=== PATIENT | female | born 1940 | race Hispanic/Latino ===

== ENCOUNTER 2017-10-21 20:46 | Emergency (ER) | payer MEDICARE ==
[~2017-10-21 20:46] MED LIST: CA C1TAB99 PO; CHOL200074 PO; DILT120T PO; ESCI20TA PO; ESOM20CA31 PO; GLIP5TAB11 PO; LEVO250T2 PO; LEVO50TA11 PO; MELO-106 PO; METF500T6 PO; PANT40SU PO; POLY17PO4 PO; SIMV10TA6 PO; TRAM50TA4 PO
[2017-10-21] MEDS ORDERED: ONDANSETRON HCL 4 MG/2 ML VIAL ONE (21:41)
[2017-10-21] MEDS ORDERED: SODIUM CHLORIDE 0.9% 1000ML 1,000 ML IV ONE (21:41)
[2017-10-21] MEDS ORDERED: FAMOTIDINE/PF 20 MG/2 ML VIAL IV ONE (21:42)
[2017-10-21 21:53] LABS: CARBON DIOXIDE 28 mmol/L (21-32); CHLORIDE 103 mmol/L (101-111); CREATININE 0.8 mg/dL (0.5-1.5); GLOMERULAR FILTR. RATE CALC 74 mL/min (>60); GLUCOSE,RANDOM 248 mg/dL (70-105); POTASSIUM 4.5 mmol/L (3.5-5.1); SODIUM SERUM 140 mmol/L (136-145); UREA NITROGEN, BLOOD 18 mg/dL (7-18)
[2017-10-21 22:04] LABS: BASOPHILS % (AUTO) 0.6 % (0.0-5.0); EOSINOPHILS % (AUTO) 1.6 % (0.0-8.0); LYMPHOCYTES % (AUTO) 23.3 % (21.0-51.0); MEAN CORPUSCULAR HEMOGLOBIN 30.3 pg (27.0-33.0); MEAN CORPUSCULAR HGB CONC 34.1 g/dL (32.0-36.0); MONOCYTES % (AUTO) 6.7 % (3.0-13.0); NEUTROPHILS % (AUTO) 67.8 % (40.0-77.0); PLATELET COUNT (AUTO) 116 K/uL (130-400); RED BLOOD CELL COUNT(AUTO) 4.04 MIL/uL (4.00-5.50); RED CELL DISTRIBUTION WIDTH 12.9 % (11.0-15.5); WHITE BLOOD COUNT (AUTO) 11.2 K/uL (4.8-10.8)
[2017-10-21 22:26] LABS: ALANINE AMINOTRANSFERASE 27 U/L (12-78); ALBUMIN 3.1 g/dL (3.5-5.0); ASPARTATE AMINOTRANSFERASE 21 U/L (10-37); BILIRUBIN,TOTAL 0.2 mg/dL (0.2-1.0); CREATINE KINASE MB < 0.5 ng/mL (0.5-3.6); CREATINE KINASE, TOTAL 33 U/L (21-232); LIPASE 189 U/L (114-286); TOTAL PROTEIN, SERUM 7.6 g/dL (6.0-8.3)
== END 2017-10-22 02:11 | disposition home or self-care (01) ==
LOC: EDH 20:46
DX: K59.00 Constipation, unspecified (principal); E11.9 Type 2 diabetes mellitus without complications; E78.5 Hyperlipidemia, unspecified; I10 Essential (primary) hypertension
CPT/HCPCS: 36415; 74176; 80053; 82550; 82553; 83690; 84484; 85025; 93005; 96361; 96374; 96375; 99285; J2405; J3490; J7030

== ENCOUNTER 2018-02-24 11:11 | Emergency (ER) | payer MEDICARE ==
[2018-02-24] MEDS ORDERED: IOPAMIDOL-370 75 ML VIAL IV ONE (11:45)
[2018-02-24] MEDS ORDERED: SODIUM CHLORIDE 0.9% 1000ML 1,000 ML IV ONE (11:47)
[2018-02-24] MEDS ORDERED: ONDANSETRON HCL 4 MG/2 ML VIAL ONE (11:47)
[2018-02-24 11:50] LABS: BASOPHILS % (AUTO) 0.3 % (0.0-5.0); EOSINOPHILS % (AUTO) 0.1 % (0.0-8.0); HEMATOCRIT 36.7 % (36-48); LYMPHOCYTES % (AUTO) 2.9 % (21.0-51.0); MEAN CORPUSCULAR HEMOGLOBIN 30.8 pg (27.0-33.0); MEAN CORPUSCULAR HGB CONC 34.5 g/dL (32.0-36.0); MEAN CORPUSCULAR VOLUME 89.3 fL (79-99); MONOCYTES % (AUTO) 3.1 % (3.0-13.0); NEUTROPHILS % (AUTO) 93.6 % (40.0-77.0); PLATELET COUNT (AUTO) 216 K/uL (130-400); RED BLOOD CELL COUNT(AUTO) 4.11 MIL/uL (4.00-5.50); RED CELL DISTRIBUTION WIDTH 13.1 % (11.0-15.5); WHITE BLOOD COUNT (AUTO) 11.7 K/uL (4.8-10.8)
[2018-02-24 12:01] LABS: ALBUMIN 3.5 g/dL (3.5-5.0); BILIRUBIN,TOTAL 0.5 mg/dL (0.2-1.0); CREATININE 1.1 mg/dL (0.5-1.5); POTASSIUM 4.1 mmol/L (3.5-5.1); TOTAL PROTEIN, SERUM 7.8 g/dL (6.0-8.3)
[2018-02-24] MEDS ORDERED: ACETAMINOPHEN 325 MG TAB ONE (13:22)
[2018-02-24] MEDS ORDERED: INSULIN HUMULIN R 100 UNIT/ML 3ML ONE (15:05)
== END 2018-02-24 15:13 | disposition home or self-care (01) ==
LOC: EDH 11:11
DX: K52.9 Noninfective gastroenteritis and colitis, unspecified (principal); E11.9 Type 2 diabetes mellitus without complications; E78.5 Hyperlipidemia, unspecified; I10 Essential (primary) hypertension; Z90.49 Acquired absence of other specified parts of digestive tract
CPT/HCPCS: 36415; 74177; 80053; 83690; 85025; 96372; 96374; 99285; J1815; J2405; J7030; Q9967

== ENCOUNTER 2018-06-28 06:07 | Emergency (ER) | payer MEDICARE ==
[~2018-06-28 06:07] MED LIST changes: +METF-444 PO; -METF500T6 PO
[2018-06-28 06:45] LABS: BASOPHILS % (AUTO) 0.8 % (0.0-5.0); EOSINOPHILS % (AUTO) 0.3 % (0.0-8.0); HEMATOCRIT 37.2 % (36-48); LYMPHOCYTES % (AUTO) 4.7 % (21.0-51.0); MEAN CORPUSCULAR HEMOGLOBIN 29.5 pg (27.0-33.0); MEAN CORPUSCULAR HGB CONC 33.2 g/dL (32.0-36.0); MEAN CORPUSCULAR VOLUME 88.7 fL (79-99); NEUTROPHILS % (AUTO) 88.2 % (40.0-77.0); PLATELET COUNT (AUTO) 216 K/uL (130-400); RED BLOOD CELL COUNT(AUTO) 4.19 MIL/uL (4.00-5.50); RED CELL DISTRIBUTION WIDTH 12.9 % (11.0-15.5); WHITE BLOOD COUNT (AUTO) 18.1 K/uL (4.8-10.8)
[2018-06-28 06:47] LABS: RAPID GROUP A STREP NEGATIVE (NEGATIVE)
[2018-06-28] MEDS ORDERED: ONDANSETRON HCL 4 MG/2 ML VIAL ONE (06:49)
[2018-06-28] MEDS ORDERED: SODIUM CHLORIDE 0.9% 1000ML 1,000 ML IV ONE (06:49)
[2018-06-28] MEDS ORDERED: ACETAMINOPHEN-CODEINE ELIXIR 5 ML UDCUP ONE (06:49)
[2018-06-28 06:54] LABS: APPEARANCE,URINE Cloudy (CLEAR); BILIRUBIN,URINE Negative (NEGATIVE); COLOR,URINE Yellow (YELLOW); GLUCOSE, URINE (UA) >=1000 mg/dL (NEGATIVE); KETONES,URINE 40 mg/dL (NEGATIVE); LEUKOCYTE ESTERASE ,URINE Negative (NEGATIVE); NITRATE,URINE Positive (NEGATIVE); OCCULT BLOOD,URINE Small (NEGATIVE); PROTEIN,URINE POS 2+ (NEGATIVE); UROBILINOGEN,URINE 0.2 mg/dL (0.2-1.0)
[2018-06-28 07:00] LABS: CARBON DIOXIDE 25 mmol/L (21-32); CHLORIDE 99 mmol/L (101-111); CREATININE 1.1 mg/dL (0.5-1.5); GLOMERULAR FILTR. RATE CALC 51 mL/min (>60); GLUCOSE,RANDOM 367 mg/dL (70-105); POTASSIUM 3.7 mmol/L (3.5-5.1); SODIUM SERUM 136 mmol/L (136-145); UREA NITROGEN, BLOOD 23 mg/dL (7-18)
[2018-06-28 07:02] LABS: INR 0.95 (0.85-1.15); PARTIAL THROMBOPLASTIN TIME 29.9 SEC (26.3-35.5)
[2018-06-28] MEDS ORDERED: IOHEXOL 350 MG/ML 100ML INFUS..BTL IV ONE (07:12)
[2018-06-28 07:17] LABS: ALANINE AMINOTRANSFERASE 16 U/L (12-78); ALBUMIN 3.2 g/dL (3.5-5.0); ASPARTATE AMINOTRANSFERASE 10 U/L (10-37); BILIRUBIN,TOTAL 0.5 mg/dL (0.2-1.0); CREATINE KINASE, TOTAL 30 U/L (21-232); MYOGLOBIN 22 ng/mL (10-92); TOTAL PROTEIN, SERUM 8.6 g/dL (6.0-8.3); TROPONIN I < 0.04 ng/mL (0.00-0.06)
[2018-06-28 07:33] LABS: BACTERIA,URINE Many /HPF (None Seen); RBC,URINE 0-1 /HPF (0-1); SQUAMOUS EPITHELIAL CELL,UR Rare /HPF (0-2)
[2018-06-28] MEDS ORDERED: CEFTRIAXONE SODIUM 1 GM ONE (07:55)
[2018-06-28] MEDS ORDERED: SODIUM CHLORIDE 0.9% 50 ML IV ONE (07:56)
[2018-06-28] MEDS ORDERED: INSULIN HUMULIN R 100 UNIT/ML 3ML ONE (08:30)
[2018-06-29] MEDS ORDERED: CEPH500C2 PO (12:30)
[2018-06-29] MEDS ORDERED: TYL3B PO (12:30)
[2018-06-29] MEDS ORDERED: FLUC150T6 PO (12:30)
[2018-06-29] MEDS ORDERED: ONDA4TAB10 PO (12:30)
[2018-06-29] MEDS ORDERED: DILT-36 PO (15:50)
[2018-06-29] MEDS ORDERED: MELO-108 PO (15:50)
[2018-06-29] MEDS ORDERED: CELE-84 PO (15:50)
[2018-06-29] MEDS ORDERED: PRAV20TA4 PO (15:50)
[2018-06-29] MEDS ORDERED: LOSA50TA25 PO (15:50)
[2018-06-29] MEDS ORDERED: NITR100C PO (15:50)
[2018-06-29] MEDS ORDERED: GLIP5TAB11 PO (15:50)
[2018-06-29] MEDS ORDERED: DONE5TAB33 PO (15:50)
[2018-06-29] MEDS ORDERED: DOCU-282 PO (15:50)
== END 2018-06-28 09:51 | disposition home or self-care (01) ==
LOC: EDH 06:07
DX: N10 Acute pyelonephritis (principal); E11.65 Type 2 diabetes mellitus with hyperglycemia; I10 Essential (primary) hypertension; E78.5 Hyperlipidemia, unspecified
CPT/HCPCS: 36415; 71045; 74177; 80053; 81001; 82550; 82948; 83605; 83874; 84484; 85025; 85610; 85730; 87040 ×2; 87077 ×3; 87088; 87186 ×3; 87804 ×2; 87880; 93005; 96374; 96375; 99285; J0696; J1815; J2405; J7030; Q9967

== ENCOUNTER 2018-06-28 15:06 | Inpatient (IN) | payer MEDICARE ==
[~2018-06-28] VITALS: Ht 167.6 cm; Wt 92.3 kg
[2018-06-28] MEDS ORDERED: SODIUM CHLORIDE 0.9% 1000ML 1,000 ML IV ONE ×2 (15:19→17:24)
[2018-06-28] MEDS ORDERED: ONDANSETRON HCL 4 MG/2 ML VIAL ONE (15:19)
[2018-06-28 15:29] LABS: BASOPHILS % (AUTO) 0.4 % (0.0-5.0); EOSINOPHILS % (AUTO) 0.2 % (0.0-8.0); HEMATOCRIT 34.1 % (36-48); MEAN CORPUSCULAR HEMOGLOBIN 29.6 pg (27.0-33.0); MEAN CORPUSCULAR HGB CONC 33.4 g/dL (32.0-36.0); MEAN CORPUSCULAR VOLUME 88.8 fL (79-99); MONOCYTES % (AUTO) 6.7 % (3.0-13.0); NEUTROPHILS % (AUTO) 87.7 % (40.0-77.0); PLATELET COUNT (AUTO) 198 K/uL (130-400); RED BLOOD CELL COUNT(AUTO) 3.84 MIL/uL (4.00-5.50); WHITE BLOOD COUNT (AUTO) 15.8 K/uL (4.8-10.8)
[2018-06-28 15:51] LABS: CREATININE 0.9 mg/dL (0.5-1.5); POTASSIUM 3.7 mmol/L (3.5-5.1)
[2018-06-28 15:56] LABS: BILIRUBIN,TOTAL 0.3 mg/dL (0.2-1.0); TOTAL PROTEIN, SERUM 8.2 g/dL (6.0-8.3)
[2018-06-28] MEDS ORDERED: ACETAMINOPHEN 325 MG TAB ONE (17:24)
[2018-06-28 19:23] VITALS: BP 146/61
[2018-06-28] MEDS: SODIUM CHLORIDE 0.9% 1000ML 1,000 ML IV SCH (19:40)
[2018-06-28] MEDS: CEFTRIAXONE SODIUM 1 GM IVP SCH (19:41)
[2018-06-28] MEDS: ENOXAPARIN SODIUM 40 MG/0.4 ML SYRINGE SQ SCH (19:42)
[2018-06-28 20:00] VITALS: BP 143/58
[2018-06-28 23:40] VITALS: BP 155/68
[2018-06-28] MEDS: ACETAMINOPHEN 325 MG TAB PO PRN (23:58)
[2018-06-29] VITALS (7 sets, daily range): BP systolic 137–160; BP diastolic 48–70
[2018-06-29] MEDS: SODIUM CHLORIDE 0.9% 1000ML 1,000 ML IV SCH ×2 (05:27→22:13)
[2018-06-29] MEDS ORDERED: PNEUMOCOCCAL VACCINE POLYVALENT 0.5 ML/VIAL [PPV] IM SCH (06:30)
[2018-06-29] MEDS ORDERED: TYL3B PO (12:30)
[2018-06-29] MEDS ORDERED: CEPH500C2 PO (12:30)
[2018-06-29] MEDS ORDERED: ONDA4TAB10 PO (12:30)
[2018-06-29] MEDS ORDERED: FLUC150T6 PO (12:30)
[2018-06-29] MEDS: ACETAMINOPHEN 325 MG TAB PO PRN ×2 (14:12→22:32)
[2018-06-29] MEDS ORDERED: GLIP5TAB11 PO (15:50)
[2018-06-29] MEDS ORDERED: CELE-84 PO (15:50)
[2018-06-29] MEDS ORDERED: DILT-36 PO (15:50)
[2018-06-29] MEDS ORDERED: DONE5TAB33 PO (15:50)
[2018-06-29] MEDS ORDERED: DOCU-282 PO (15:50)
[2018-06-29] MEDS ORDERED: NITR100C PO (15:50)
[2018-06-29] MEDS ORDERED: PRAV20TA4 PO (15:50)
[2018-06-29] MEDS ORDERED: MELO-108 PO (15:50)
[2018-06-29] MEDS ORDERED: LOSA50TA25 PO (15:50)
[2018-06-29] MEDS ORDERED: MORPHINE SULFATE 2 MG/ML 1ML SYG IVP PRN (20:45)
[2018-06-29] MEDS: INSULIN HUMULIN R 100 UNIT/ML 3ML SQ SCH (22:06)
[2018-06-29] MEDS: INSULIN GLARGINE 100 UNITS/ML 10 ML VIAL SQ SCH (22:06)
[2018-06-29] MEDS: ONDANSETRON HCL 4 MG/2 ML VIAL IVP PRN (22:10)
[2018-06-29] MEDS: ZOSYN 3.375GM+NS 50ML 50 ML IV SCH (22:13)
[2018-06-29] MEDS: ENOXAPARIN SODIUM 40 MG/0.4 ML SYRINGE SQ SCH (22:14)
[2018-06-29] MEDS: CEFTRIAXONE SODIUM 1 GM IVP SCH (22:14)
[2018-06-30 03:05] VITALS: BP 145/58
[2018-06-30 04:38] LABS: HEMATOCRIT 31.7 % (36-48); MEAN CORPUSCULAR HEMOGLOBIN 29.5 pg (27.0-33.0); MEAN CORPUSCULAR HGB CONC 33.3 g/dL (32.0-36.0); MEAN CORPUSCULAR VOLUME 88.6 fL (79-99); PLATELET COUNT (AUTO) 190 K/uL (130-400); RED BLOOD CELL COUNT(AUTO) 3.57 MIL/uL (4.00-5.50); RED CELL DISTRIBUTION WIDTH 12.6 % (11.0-15.5); WHITE BLOOD COUNT (AUTO) 11.2 K/uL (4.8-10.8)
[2018-06-30 05:30] LABS: ALANINE AMINOTRANSFERASE 12 U/L (12-78); ALBUMIN 2.5 g/dL (3.5-5.0); ASPARTATE AMINOTRANSFERASE 13 U/L (10-37); BILIRUBIN,TOTAL 0.2 mg/dL (0.2-1.0); CARBON DIOXIDE 30 mmol/L (21-32); CHLORIDE 103 mmol/L (101-111); CREATINE KINASE, TOTAL 19 U/L (21-232); CREATININE 0.8 mg/dL (0.5-1.5); GLOMERULAR FILTR. RATE CALC 74 mL/min (>60); GLUCOSE,RANDOM 191 mg/dL (70-105); MYOGLOBIN 25 ng/mL (10-92); POTASSIUM 4.1 mmol/L (3.5-5.1); SODIUM SERUM 139 mmol/L (136-145); TOTAL PROTEIN, SERUM 7.7 g/dL (6.0-8.3); TROPONIN I < 0.04 ng/mL (0.00-0.06); UREA NITROGEN, BLOOD 13 mg/dL (7-18)
[2018-06-30] MEDS: ZOSYN 3.375GM+NS 50ML 50 ML IV SCH ×3 (06:15→22:46)
[2018-06-30] MEDS: INSULIN HUMULIN R 100 UNIT/ML 3ML SQ SCH ×3 (06:16→20:44)
[2018-06-30 07:00] VITALS: BP 133/64
[2018-06-30] MEDS: FAMOTIDINE/PF 20 MG/2 ML VIAL IV SCH (09:46)
[2018-06-30] MEDS: ACETAMINOPHEN 325 MG TAB PO PRN ×2 (09:57→20:22)
[2018-06-30 11:00] VITALS: BP 141/71
[2018-06-30] MEDS ORDERED: INSU100I21 SQ (11:25)
[2018-06-30 16:00] VITALS: BP 131/54
[2018-06-30 19:15] VITALS: BP 144/65
[2018-06-30] MEDS: SODIUM CHLORIDE 0.9% 1000ML 1,000 ML IV SCH (20:19)
[2018-06-30] MEDS: CEFTRIAXONE SODIUM 1 GM IVP SCH (20:19)
[2018-06-30] MEDS: ENOXAPARIN SODIUM 40 MG/0.4 ML SYRINGE SQ SCH (20:21)
[2018-06-30] MEDS: ONDANSETRON HCL 4 MG/2 ML VIAL IVP PRN (20:21)
[2018-06-30] MEDS: POLYETHYLENE GLYCOL 3350 17 GM POWD.PACK PO SCH (20:23)
[2018-06-30] MEDS: SENNOSIDES 8.6 MG TABLET PO SCH (20:23)
[2018-06-30] MEDS: INSULIN GLARGINE 100 UNITS/ML 10 ML VIAL SQ SCH (20:44)
[2018-06-30 23:33] VITALS: BP 136/59
[2018-07-01 03:49] VITALS: BP 160/69
[2018-07-01] MEDS: ZOSYN 3.375GM+NS 50ML 50 ML IV SCH ×3 (06:32→21:20)
[2018-07-01] MEDS: INSULIN HUMULIN R 100 UNIT/ML 3ML SQ SCH ×4 (06:35→21:15)
[2018-07-01 07:00] VITALS: BP 136/81
[2018-07-01] MEDS: FAMOTIDINE/PF 20 MG/2 ML VIAL IV SCH (08:33)
[2018-07-01] MEDS: POLYETHYLENE GLYCOL 3350 17 GM POWD.PACK PO SCH (08:33)
[2018-07-01] MEDS: ACETAMINOPHEN 325 MG TAB PO PRN (08:35)
[2018-07-01 11:42] VITALS: BP 148/64
[2018-07-01] MEDS ORDERED: POLY17PO4 PO (12:02)
[2018-07-01] MEDS: SODIUM CHLORIDE 0.9% 1000ML 1,000 ML IV SCH (12:45)
[2018-07-01 16:00] VITALS: BP 158/69
[2018-07-01 17:03] LABS: HEMATOCRIT 31.3 % (36-48); MEAN CORPUSCULAR HEMOGLOBIN 30.1 pg (27.0-33.0); MEAN CORPUSCULAR HGB CONC 33.7 g/dL (32.0-36.0); MEAN CORPUSCULAR VOLUME 89.5 fL (79-99); NUCLEATED RED BLOOD CELLS 0.1 % (0.0-0.19); PLATELET COUNT (AUTO) 213 K/uL (130-400); RED CELL DISTRIBUTION WIDTH 13.2 % (11.0-15.5); WHITE BLOOD COUNT (AUTO) 8.6 K/uL (4.8-10.8)
[2018-07-01 17:39] LABS: CREATININE 0.8 mg/dL (0.5-1.5); POTASSIUM 3.6 mmol/L (3.5-5.1)
[2018-07-01] MEDS ORDERED: BISACODYL 10 MG SUPP.RECT RC SCH (18:00)
[2018-07-01 19:00] VITALS: BP 142/60
[2018-07-01] MEDS: INSULIN GLARGINE 100 UNITS/ML 10 ML VIAL SQ SCH (21:15)
[2018-07-01] MEDS: CEFTRIAXONE SODIUM 1 GM IVP SCH (21:20)
[2018-07-01] MEDS: SENNOSIDES 8.6 MG TABLET PO SCH (21:23)
[2018-07-01] MEDS: ENOXAPARIN SODIUM 40 MG/0.4 ML SYRINGE SQ SCH (21:23)
[2018-07-02] VITALS: BP 161/66
[2018-07-02 04:00] VITALS: BP 163/72
[2018-07-02] MEDS: INSULIN HUMULIN R 100 UNIT/ML 3ML SQ SCH ×3 (06:08→17:20)
[2018-07-02] MEDS: ZOSYN 3.375GM+NS 50ML 50 ML IV SCH (06:45)
[2018-07-02] MEDS: POLYETHYLENE GLYCOL 3350 17 GM POWD.PACK PO SCH (07:58)
[2018-07-02] MEDS: FAMOTIDINE/PF 20 MG/2 ML VIAL IV SCH (07:58)
[2018-07-02] MEDS: ACETAMINOPHEN 325 MG TAB PO PRN (07:59)
[2018-07-02 08:19] VITALS: BP 157/74
[2018-07-02 11:46] VITALS: BP 154/58
[2018-07-02 16:12] VITALS: BP 161/69
[2018-07-02] MEDS ORDERED: TYL3 PO (18:09)
[2018-07-02] MEDS ORDERED: AMOX-426 PO (18:11)
[2018-07-02 22:00] VITALS: BP 167/97
== END 2018-07-02 19:15 | disposition home or self-care (01) | DRG 872 ==
LOC: EDH 15:06 → EDHIP 15:30 → 3DH 18:09
PROVIDERS: ADMIT Internal Medicine; ATTEND Internal Medicine
PROC: 3E0234Z Introduction of Serum, Toxoid and Vaccine into Muscle, Percutaneous Approach (ICD-10-PCS; principal; 2018-06-29)
PROC: 3E0234Z Introduction of Serum, Toxoid and Vaccine into Muscle, Percutaneous Approach (ICD-10-PCS; 2018-06-29)
DX: A41.9 Sepsis, unspecified organism (principal); N12 Tubulo-interstitial nephritis, not specified as acute or chronic; K29.70 Gastritis, unspecified, without bleeding; R65.20 Severe sepsis without septic shock; I10 Essential (primary) hypertension; E11.9 Type 2 diabetes mellitus without complications; M15.9 Polyosteoarthritis, unspecified; K21.9 Gastro-esophageal reflux disease without esophagitis; F41.9 Anxiety disorder, unspecified; K57.90 Diverticulosis of intestine, part unspecified, without perforation or abscess without bleeding; E78.5 Hyperlipidemia, unspecified; R11.2 Nausea with vomiting, unspecified; Z23 Encounter for immunization
CPT/HCPCS: 36415; 71045; 74176; 80048; 80053; 82550; 82948; 83605; 83874; 84484; 85025; 85027; 90732; 93005; A4218; G0008; G0009; J0696; J1650; J1815; J2405; J2543; J3490; J7030; Q2038

== ENCOUNTER 2023-05-04 21:32 | Emergency (ER) | payer MEDICARE ==
[~2023-05-04] VITALS: Ht 157.5 cm; Wt 86.6 kg
[~2023-05-04 21:32] MED LIST changes: +AMOX1TAB16 PO; -CA C1TAB99 PO; -CHOL200074 PO; +DILT-36 PO; -DILT120T PO; +DONE5TAB33 PO; +DULA0.75 SQ; -ESCI20TA PO; +ESCI20TA38 PO; -ESOM20CA31 PO; +GABA-531 PO; -GLIP5TAB11 PO; +INSU100I22 SQ; -LEVO250T2 PO; -LEVO50TA11 PO; +LORA0.5T2 PO; +LOSA50TA64 PO; -MELO-106 PO; -PANT40SU PO; -POLY17PO4 PO; +PRAV20TA4 PO; -SIMV10TA6 PO; -TRAM50TA4 PO
[2023-05-04 21:33] VITALS: O2SAT 97
[2023-05-04 21:34] VITALS: BP 184/88; PULSE 85; RESP 18
[2023-05-04] MEDS ORDERED: HYDROCODONE/ACETAMINOPHEN 5/325 MG TAB PO ONE (22:00)
== END 2023-05-04 23:13 | disposition home or self-care (01) ==
LOC: EDH 21:32
DX: S80.01XA Contusion of right knee, initial encounter (principal); E11.9 Type 2 diabetes mellitus without complications; Z79.84 Long term (current) use of oral hypoglycemic drugs; Z79.899 Other long term (current) drug therapy; W18.39XA Other fall on same level, initial encounter; Y93.89 Activity, other specified; Y92.89 Other specified places as the place of occurrence of the external cause; Y99.8 Other external cause status
CPT/HCPCS: 71045; 72170; 73502; 73564; 73590; 73610